=== PATIENT | male | born 1950 | race Caucasian/White ===

== ENCOUNTER 2016-11-05 17:08 | Emergency (ER) | payer OTHER ==
[~2016-11-05] VITALS: Ht 177.8 cm; Wt 111.4 kg
[~2016-11-05 17:08] MED LIST: ALBUTEROL SULF8.5 GM IH; ANTIVERT25 MG PO; BACTRIM,SEPT1 TABLET PO; CIPROFLOXACIN500 M1 PO; CLOPIDOGREL75 MG PO; ENDOCET 5-3251 EACH PO; FLEXERIL10 MG PO; GABAPENTIN300 MG PO; HYDROCHLOROTHIA25 MG PO; KEFLEX500 MG PO; LEVITRA10 MG PO; LISINOPRIL10 MG PO; NAPROSYN500 MG PO; NICODERM CQ1 EAC1 TD; NOHOMEMEDS; NON-ASPIRIN EX500 M2 PO; PERCOCET 5/31 TABLET PO; PRAVASTATIN SOD40 MG PO; PREDNISONE50 MG PO; TRAMADOL HCL50 MG PO; XARELTO20 MG PO
[2016-11-05] MEDS ORDERED: LIDODERM 5% P1 PATCH TD (19:18)
[2016-11-05 19:35] VITALS: BP 105/75
== END 2016-11-05 19:36 | disposition home or self-care (01) ==
LOC: EME 17:08
DX: M25.852 Other specified joint disorders, left hip (principal); M25.552 Pain in left hip; M81.0 Age-related osteoporosis without current pathological fracture; I10 Essential (primary) hypertension; E78.5 Hyperlipidemia, unspecified; Z86.718 Personal history of other venous thrombosis and embolism; Z79.01 Long term (current) use of anticoagulants; Z79.891 Long term (current) use of opiate analgesic; Z87.891 Personal history of nicotine dependence
CPT/HCPCS: 73502; 99281; 99284

== ENCOUNTER 2017-03-07 05:42 | Emergency (ER) | payer OTHER ==
[~2017-03-07] VITALS: Ht 177.8 cm; Wt 109.0 kg
[~2017-03-07 05:42] MED LIST changes: +LIDODERM 5% P1 PATCH TD
[2017-03-07 06:29] LABS: ADD MIUA? YES; BILIRUBIN NEGATIVE; BLOOD MODERATE; COLOR YELLOW ((YELLOW)); GLUCOSE (STRIP) NEGATIVE; KETONES NEGATIVE; LEUKOCYTES LARGE; NITRITE NEGATIVE; PROTEIN (STRIP) 30; SPECIFIC GRAVITY 1.019 (1.000-1.030); UROBILINOGEN 0.2 MG/DL (0.2-1.0)
[2017-03-07 06:30] LABS: HEMATOCRIT 43.5 % (38.0-50.0); MCH 29.6 PG (29.0-34.0); MCHC 33.6 G/DL (30.0-36.0); MCV 88.1 FL (86-99); MEAN PLAT.VOLUME 10.4 uM^3 (9.0-12.4); PLATELET COUNT 186 K/uL (156-360); RBC DIS.WIDTH-SD 41.7 % (39-53); RED BLOOD COUNT 4.94 M/uL (4.00-5.50); WHITE BLOOD COUNT 11.5 K/uL (4.1-10.2)
[2017-03-07 06:38] LABS: CHLORIDE 104 mEq/L (99-109); POTASSIUM 3.9 mEq/L (3.7-5.4); SODIUM 137 mEq/L (136-147)
[2017-03-07 06:40] LABS: GLUCOSE 142 mg/dL (70-99)
[2017-03-07 06:41] LABS: BACTERIA 2+ /HPF; CASTS NONE SEEN /LPF; CRYSTALS NONE SEEN; EPITHELIAL CELLS RARE /HPF; MUCUS NONE SEEN /LPF; RED BLOOD CELLS 30-40 /HPF (0-5); UCUL ADDED? YES; WHITE BLOOD CELLS TNTC /HPF (0-5)
[2017-03-07 06:42] LABS: ANION GAP 9 MEQ/L (2-14); TOTAL BILIRUBIN 1.3 mg/dL (0.0-1.0)
[2017-03-07 06:44] LABS: ALKALINE PHOSPHATASE 59 IU/L (3-129); GFR ESTIMATE (CALCULATED) > 59 mL/min/
[2017-03-07 06:45] LABS: UREA NITROGEN (BUN) 20 mg/dL (9-23)
[2017-03-07 06:48] LABS: LIPASE 16 U/L (1.0-51.0)
[2017-03-07] MEDS ORDERED: BACTRIM,SEPT1 TABLET PO (07:27)
[2017-03-07 08:25] VITALS: BP 126/64
== END 2017-03-07 08:36 | disposition home or self-care (01) ==
LOC: EME 05:42
PROVIDERS: Emergency Medicine
DX: N39.0 Urinary tract infection, site not specified (principal); R50.9 Fever, unspecified; E78.5 Hyperlipidemia, unspecified; I10 Essential (primary) hypertension; Z86.718 Personal history of other venous thrombosis and embolism; Z86.14 Personal history of Methicillin resistant Staphylococcus aureus infection; Z79.01 Long term (current) use of anticoagulants; Z87.891 Personal history of nicotine dependence
CPT/HCPCS: 80053; 81003; 83605; 83690; 85027; 87040; 99281; 99285; J0696; J7030; J7050

== ENCOUNTER 2017-03-18 08:35 | Emergency (ER) | payer OTHER ==
[~2017-03-18] VITALS: Ht 177.8 cm; Wt 106.7 kg
[2017-03-18] MEDS ORDERED: HYDROCHLOROTHIA25 MG PO (08:45)
[2017-03-18] MEDS ORDERED: BENADRYL25 MG PO (09:32)
[2017-03-18 10:32] VITALS: BP 125/66
== END 2017-03-18 10:33 | disposition home or self-care (01) ==
LOC: EME 08:35
DX: L50.9 Urticaria, unspecified (principal); I10 Essential (primary) hypertension; Z86.718 Personal history of other venous thrombosis and embolism; Z79.01 Long term (current) use of anticoagulants; Z88.6 Allergy status to analgesic agent
CPT/HCPCS: 99281; 99283